=== PATIENT | male | born 1965 | race Caucasian/White ===

== ENCOUNTER → 2023-12-15 13:03 | Outpatient (REF) | payer BC, SELFPAY | LOC: EMG 13:03 | PROVIDERS: ATTENDING PHYSICIAN Podiatrist | DX: G90.09 Other idiopathic peripheral autonomic neuropathy (principal); M79.671 Pain in right foot; M79.672 Pain in left foot | CPT/HCPCS: 95886; 95911 ==

== ENCOUNTER → 2024-09-06 07:11 | Outpatient (REF) | payer BC, SELFPAY | LOC: RAD 07:11 | PROVIDERS: ATTENDING PHYSICIAN Podiatrist; FAMILY PHYSICIAN Internal Medicine; OTHER PHYSICIAN Internal Medicine Clinical Cardiac Electrophysiology | DX: I70.219 Atherosclerosis of native arteries of extremities with intermittent claudication, unspecified extremity (principal) | CPT/HCPCS: 93922; 93925 ==